=== PATIENT | female | born 1955 | race Caucasian/White ===

== ENCOUNTER 2021-04-14 15:43 | Inpatient (IN) ==
--- NOTE | 2021-04-14 16:10 | Emergency Department Note ---
History of Present Illness General Chief complaint: Neuro Symptoms/Deficit Stated complaint: POSSIBLE STROKE SYMPTOMS, SLURRED SPEECH, ARM NUMB Time Seen by Provider: 04/14/21 15:51 Source: patient and family History of Present Illness Provider complaint: Right arm numbness and difficulty with speech Onset (ago): hour(s) Location: head, upper extremity and right Pain Consistency: + now resolved Quality: + other (Numbness to the right arm and difficulty with speech) Exacerbated By: + none Associated symptoms: no chest pain, no cough, no fever/chills, no headaches, no nausea/vomiting or no shortness of breath This is a 65-year-old female who presents with strokelike symptoms starting at approximately 1230 p.m. today She was seen at an urgent care center and sent here for further work-up. The patient states that she works at [employer] and was doing a customers order. She messed up the order and she a lso started to feel numbness to the right forearm. Shortly thereafter the staff noticed that her speech was off. She had trouble articulating words and was not sure if she was able to find the right words as well. She is having difficulty differentiating the 2. She states that she had no sudden change in vision, difficulty walking, weakness in the extremities or numbness other than in the right arm. She had no trouble swallowing. She did not have a headache. She denies any similar symptoms in the past. She has a history of hypertension. She has had no fever, cough or cold symptoms other than mild sinus issues which are chronic, chest pain, shortness of breath, abdominal pain, vomiting, diarrhea or urinary symptoms. Home Medications Medication Instructions Recorded Confirmed Type atenolol 100 mg tablet 50 mg PO QPM 04/14/21 04/14/21 History atenolol 100 mg tablet 100 mg PO QAM 04/14/21 04/14/21 History doxazosin 4 mg tablet 4 mg PO DAILY 04/14/21 04/14/21 History lisinopril 20 1 tab PO DAILY 04/14/21 04/14/21 History mg-hydrochlorothiazide 25 mg tablet Allergies Allergy/AdvReac Type Severity Reaction Status Date / Time No Known Allergies Allergy Unverified 04/14/21 20:08 Past Med/Surg History Medical History Hypertension Sinus infection Social History Smoking Status: Current every day smoker Feels Safe at Home: Yes Review of Systems See HPI for pertinent positives & negatives. and A total of 10 systems reviewed and were otherwise negative Physical Exam Vital Signs Vital Signs - 24 hr 04/14/21 15:48 04/14/21 16:04 04/14/21 17:00 Temperature 36.8 C Temperature Source Temporal Artery Scan Pulse Rate 69 Pulse Rate [Left Finger] 85 84 Pulse Rhythm Regular Pulse Rhythm [Left Finger] Regular Regular Pulse Strength Normal Pulse Strength [Left Finger] Normal Normal Respiratory Rate 20 17 18 Respiratory Effort / Characteristics Non-Labored Spontaneous Non-Labored Spontaneous Non-Labored Spontaneous Respiratory Depth Normal Normal Normal Respiratory Pattern Regular Blood Pressure 175/81 H Blood Pressure [Left Arm] 150/88 H 138/84 Blood Pressure Mean 112 Blood Pressure Mean [Left Arm] 108 102 Blood Pressure Position Sitting Blood Pressure Position [Left Arm] Sitting Sitting Pulse Oximetry 99 94 94 Oxygen Delivery Method Room Air Room Air Room Air Sepsis Recent Fever Within 48 Hours No Sepsis New/Unexplained Change in Mental Status N/A Sepsis Action Taken by Nursing No Action Required 04/14/21 18:00 04/14/21 20:00 Temperature Temperature Source Pulse Rate Pulse Rate [Left Finger] 63 80 Pulse Rhythm Pulse Rhythm [Left Finger] Regular Regular Pulse Strength Pulse Strength [Left Finger] Normal Normal Respiratory Rate 17 18 Respiratory Effort / Characteristics Non-Labored Spontaneous Non-Labored Spontaneous Respiratory Depth Normal Normal Respiratory Pattern Regular Blood Pressure Blood Pressure [Left Arm] 178/91 H 137/62 Blood Pressure Mean Blood Pressure Mean [Left Arm] 120 87 Blood Pressure Position Blood Pressure Position [Left Arm] Sitting Lying Pulse Oximetry 96 96 Oxygen Delivery Method Room Air Room Air Sepsis Recent Fever Within 48 Hours Sepsis New/Unexplained Change in Mental Status Sepsis Action Taken by Nursing Constitutional: Vital signs reviewed. Eyes: Pupils are equal round reactive to light. Conjunctiva are noninjected. ENT: Pharynx is clear without erythema or exudate. Mucous membranes are moist. Neck supple without meningeal signs. Respiratory: Clear to auscultation bilaterally. Breath sounds are equal bilaterally. Cardiovascular: Regular rate and rhythm. No rubs or gallops. Loud carotid bruit on the left side. Carotid bruit also present on the right side. Not as pronounced. GI: Soft, nondistended and nontender. Bowel sounds are present. Musculoskeletal: No peripheral edema. No lower extremity tenderness. Integumentary: No cyanosis. or jaundice. Neurologic: The patient is awake and alert. Cranial nerves II-XII are intact. Motor is 5 out of 5 all extremities. Sensation is intact to light touch all extremities. Normal speech. No pronator drift. No limb ataxia. Normal gait. Psychiatric: Anxious. Course Administered Medications Discontinued Medications Aspirin (Aspirin 81 Mg Chew) 324 mg PO NOW STA Stop: 04/14/21 20:19 Last Admin: 04/14/21 20:41 Dose: 324 mg Documented by: [id number] Clopidogrel Bisulfate (Clopidogrel Bisulfate 75 Mg Tab) 75 mg PO NOW ONE Stop: 04/14/21 20:19 Last Admin: 04/14/21 20:40 Dose: 75 mg Documented by: [id number] Ioversol (Optiray 320 125ml) 118 ml IV ONCE ONE Stop: 04/14/21 17:55 Last Admin: 04/14/21 17:59 Dose: 118 ml Documented by: [id number] Medical Decision Making Differential Diagnosis TIA, CVA, intracranial bleed, intracranial mass, metabolic derangement, complex migraine Medical Records Attestation: I reviewed the patient's medical records. I did perform a limited focused review of portions of the patient's old chart on the electronic medical record. The patient has had no recent pertinent visits to this hospital. Home Medications Current Medication List: was personally reviewed by me Laboratory Data Attestation: I reviewed the patient's lab results. Result diagrams: 04/14/21 16:10 04/14/21 16:10 Lab Results 04/14/21 04/14/21 04/14/21 Range/Units 16:10 16:10 16:10 WBC 7.68 (4.8-10.8) K/uL RBC 4.75 (4.2-5.4) M/uL Hgb 15.6 (12.0-16.0) g/dL Hct 43.5 (37-47) % MCV 91.6 (80-100) fL MCH 32.8 (25-34) pg MCHC 35.9 (32-36) g/dL RDW Std Deviation 45.9 (36.4-46.3) fL RDW Coeff of Roby 13.6 (11.5-14.5) % Plt Count 261 (130-400) K/uL MPV 10.0 (7.4-10.4) fL Immature Gran % (Auto) 0.1 % Neut % (Auto) 64.8 % Lymph % (Auto) 27.5 % [place] % (Auto) 6.1 % Eos % (Auto) 1.4 % Baso % (Auto) 0.1 % Neut # (Auto) 4.97 (1.4-6.5) K/uL Lymph # (Auto) 2.11 (1.2-3.4) K/uL [place] # (Auto) 0.47 (0.11-0.59) K/uL Eos # (Auto) 0.11 (0-0.5) K/uL Baso # (Auto) 0.01 (0-0.2) K/uL Immature Gran # (Auto) 0.01 (0.00-0.02) K/uL PT 10.2 (9.0-12.0) Seconds INR 1.0 (0.9-1.1) APTT 29.0 (21.0-31.0) Seconds PTT Ratio 1.1 Sodium 135 L (136-145) mmol/L Potassium 3.8 (3.5-5.1) mmol/L Chloride 101 (98-107) mmol/L Carbon Dioxide 27 (21-32) mmol/L Anion Gap 7 (3-11) BUN 18 (6-23) mg/dl Creatinine 0.76 (0.6-1.2) mg/dl Est Cr Clr Drug Dosing 76.0 ml/min Est GFR ( Amer) 96.1 ml/min Est GFR (Non-Af Amer) 82.9 ml/min BUN/Creatinine Ratio 23.7 H (10-20) Glucose 98 (70-99(Fasting)) mg/dl POC Glucose (70-99) mg/dl Calcium 9.6 (8.5-10.1) mg/dl Magnesium 2.1 (1.7-2.4) mg/dl Total Bilirubin 0.6 (0.2-1.0) mg/dl AST 13 (13-39) U/L ALT 16 (7-52) U/L Alkaline Phosphatase 64 (34-104) U/L Troponin I < 0.03 (0-0.04) ng/ml Total Protein 7.4 (6.0-8.3) gm/dl Albumin 4.7 (3.4-5.0) gm/dl Globulin 2.7 (2.5-4.0) gm/dl Albumin/Globulin Ratio 1.7 (0.9-2) SARS-CoV-2, RNA, NAAT (NEGATIVE) Blood Type Antibody Screen 04/14/21 04/14/21 04/14/21 Range/Units 16:20 16:21 16:52 WBC (4.8-10.8) K/uL RBC (4.2-5.4) M/uL Hgb (12.0-16.0) g/dL Hct (37-47) % MCV (80-100) fL MCH (25-34) pg MCHC (32-36) g/dL RDW Std Deviation (36.4-46.3) fL RDW Coeff of Roby (11.5-14.5) % Plt Count (130-400) K/uL MPV (7.4-10.4) fL Immature Gran % (Auto) % Neut % (Auto) % Lymph % (Auto) % [place] % (Auto) % Eos % (Auto) % Baso % (Auto) % Neut # (Auto) (1.4-6.5) K/uL Lymph # (Auto) (1.2-3.4) K/uL [place] # (Auto) (0.11-0.59) K/uL Eos # (Auto) (0-0.5) K/uL Baso # (Auto) (0-0.2) K/uL Immature Gran # (Auto) (0.00-0.02) K/uL PT (9.0-12.0) Seconds INR (0.9-1.1) APTT (21.0-31.0) Seconds PTT Ratio Sodium (136-145) mmol/L Potassium (3.5-5.1) mmol/L Chloride (98-107) mmol/L Carbon Dioxide (21-32) mmol/L Anion Gap (3-11) BUN (6-23) mg/dl Creatinine (0.6-1.2) mg/dl Est Cr Clr Drug Dosing ml/min Est GFR ( Amer) ml/min Est GFR (Non-Af Amer) ml/min BUN/Creatinine Ratio (10-20) Glucose (70-99(Fasting)) mg/dl POC Glucose 96 (70-99) mg/dl Calcium (8.5-10.1) mg/dl Magnesium (1.7-2.4) mg/dl Total Bilirubin (0.2-1.0) mg/dl AST (13-39) U/L ALT (7-52) U/L Alkaline Phosphatase (34-104) U/L Troponin I (0-0.04) ng/ml Total Protein (6.0-8.3) gm/dl Albumin (3.4-5.0) gm/dl Globulin (2.5-4.0) gm/dl Albumin/Globulin Ratio (0.9-2) SARS-CoV-2, RNA, NAAT NEGATIVE (NEGATIVE) Blood Type O Positive Antibody Screen NEGATIVE Imaging Data Radiologist's Impression: Head CT 04/14/21 16:04 CT head/brain wo con CLINICAL HISTORY: 65 years-old Female with right arm numb/slurring of speech. Acutely altered mental status with strokelike symptoms TECHNIQUE: Multiple axial CT images of the head were obtained without contrast. A dose lowering technique was utilized adhering to the principles of ALARA. COMPARISON: CTA head and neck of same day FINDINGS: No acute intracranial hemorrhage, midline shift, intracranial mass, hydrocephalus, territorial ischemia or abnormal extra-axial collection. There are a few scattered subcentimeter cortical calcifications of the right cerebral hemisphere. Mildly motion degraded exam. The calvarium is intact. The paranasal sinuses, mastoid air cells, and middle ear cavities are clear. IMPRESSION: No acute intracranial abnormality. ACT 112: Negative or not required by law. The above report was generated using voice recognition software. It may contain grammatical, syntax or spelling errors. Electronically signed by: Js Bloom M.D. 04/14/2021 6:17 PM Head CTA 04/14/21 16:04 CT angio neck with con, CT angio head w con CLINICAL HISTORY: 65 years-old Female with left carotid bruit. Acute strokelike symptoms COMPARISON STUDY: Head CT of same day TECHNIQUE: Following the IV administration of 118 mL of Optiray, CT angiogram of the head and neck was performed from the aortic arch to the skull apex. Images are reviewed in the axial, sagittal, and coronal planes. 3-D MIPS images are created and assessed. IV contrast was administered without complication. All measurements were calculated based on NASCET criteria. A dose lowering technique was utilized adhering to the principles of ALARA. CT DOSE: 1825.08 mGy.cm FINDINGS: Study is mildly motion degraded. Atherosclerosis of the thoracic aortic arch. Patency of the innominate and imaged subclavian arteries. Patent common carotid arteries. There is severe mixed atheromatous and atherosclerotic plaque of the bilateral carotid bulbs and proximal cervical segments of the internal carotid arteries. This results in approximately 70% stenosis of the proximal left ICA (image 204 of series 8) with high-grade at least 90% stenosis/near occlusion of the proximal cervical segment right ICA (image 218 of series 8). The remainder of the right ICA is diminutive compared to the right, most pronounced within the distal petrous and cavernous segments. Atherosclerotic plaque of the cavernous and supraclinoid segments bilaterally. The middle and anterior cerebral arteries appear patent bilaterally. Dominant right vertebral artery. The bilateral vertebral arteries are patent. The basilar and posterior cerebral arteries are patent. There is origin of the right posterior cerebral artery. Cerebral venous sinuses are patent. There is no abnormal intracranial enhancement. Lung apices are generally clear. There is no pneumothorax. No thyroid nodule. Degenerative changes of the cervical spine. IMPRESSION: 1. Extensive atherosclerotic plaque of the carotid bulbs results in high-grade stenosis of the proximal cervical segments of the internal carotid arteries bilaterally (approximately 70% stenosis on the right with at least 90% stenosis/near occlusion on the left). 2. The entire right internal carotid artery is diminutive with diminished flow compared to the left. 3. Otherwise unremarkable exam. ACT 112: Negative or not required by law. The above report was generated using voice recognition software. It may contain grammatical, syntax or spelling errors. Electronically signed by: Js Bloom M.D. 04/14/2021 6:27 PM Neck CTA 04/14/21 16:04 CT angio neck with con, CT angio head w con CLINICAL HISTORY: 65 years-old Female with left carotid bruit. Acute strokelike symptoms COMPARISON STUDY: Head CT of same day TECHNIQUE: Following the IV administration of 118 mL of Optiray, CT angiogram of the head and neck was performed from the aortic arch to the skull apex. Images are reviewed in the axial, sagittal, and coronal planes. 3-D MIPS images are created and assessed. IV contrast was administered without complication. All measurements were calculated based on NASCET criteria. A dose lowering technique was utilized adhering to the principles of ALARA. CT DOSE: 1825.08 mGy.cm FINDINGS: Study is mildly motion degraded. Atherosclerosis of the thoracic aortic arch. Patency of the innominate and imaged subclavian arteries. Patent common carotid arteries. There is severe mixed atheromatous and atherosclerotic plaque of the bilateral carotid bulbs and proximal cervical segments of the internal carotid arteries. This results in approximately 70% stenosis of the proximal left ICA (image 204 of series 8) with high-grade at least 90% stenosis/near occlusion of the proximal cervical segment right ICA (image 218 of series 8). The remainder of the right ICA is diminutive compared to the right, most pronounced within the distal petrous and cavernous segments. Atherosclerotic plaque of the cavernous and supraclinoid segments bilaterally. The middle and anterior cerebral arteries appear patent bilaterally. Dominant right vertebral artery. The bilateral vertebral arteries are patent. The basilar and posterior cerebral arteries are patent. There is origin of the right posterior cerebral artery. Cerebral venous sinuses are patent. There is no abnormal intracranial enhancement. Lung apices are generally clear. There is no pneumothorax. No thyroid nodule. Degenerative changes of the cervical spine. IMPRESSION: 1. Extensive atherosclerotic plaque of the carotid bulbs results in high-grade stenosis of the proximal cervical segments of the internal carotid arteries bilaterally (approximately 70% stenosis on the right with at least 90% stenos is/near occlusion on the left). 2. The entire right internal carotid artery is diminutive with diminished flow compared to the left. 3. Otherwise unremarkable exam. ACT 112: Negative or not required by law. The above report was generated using voice recognition software. It may contain grammatical, syntax or spelling errors. Electronically signed by: Js Bloom M.D. 04/14/2021 6:27 PM ECG Data Attestation: I personally reviewed and interpreted this ECG as follows: Indication: + other (Stroke symptoms) Rate (beats per minute): 66 Rhythm: + normal sinus ECG Lawrence: + Normal ECG ST segments: no ST elevation ECG Findings: + PACs MDM Narrative I did evaluate the patient as noted above. She is presenting with stroke symptoms which have completely resolved. She had difficulty with her speech as well as numbness to the right arm. On exam here she is completely neurologically intact. She does have a loud carotid bruit on the left side. IV access was established. I did place an order for continuous cardiac monitoring. The monitor showed normal sinus rhythm at a rate of 80 bpm. I did order and per sonally review the patient's 12-lead EKG as described above. She has no acute ischemic changes. I did order and review the patient's blood work as noted in the electronic medical record. CBC is unremarkable without leukocytosis or anemia. Electrolytes and LFTs are unremarkable other than a sodium of 135. I did order a CT of the head and CT angiogram of the head neck. I did review the images myself as well as the radiology report as described above. There is no evidence of CVA on plain CT scan. CT angio of the neck and head demonstrates extensive atherosclerotic plaque of the carotid bulbs resulting in high-grade stenosis of the proximal cervical segments of the internal carotid arteries bilaterally with approximately 90% stenosis on the right side and 70% on the left. The entire right internal carotid artery is diminutive with diminished flow compared to the left. I did discuss the test results with the patient and her daughter. She is asymptomatic at this time. I did discuss the case with Dr. Soni of neurology. He recommended MRI, permissive hypertension and dual antiplatelet therapy. I did treat the patient with Plavix and aspirin. I did discuss the case with the hospitalist and rn case manager. Impression & Plan Transient cerebral ischemia, Bilateral carotid artery disease Discharge Plan Visit Data Chief Complaint: Neuro Symptoms/Deficit Stated Complaint: POSSIBLE STROKE SYMPTOMS, SLURRED SPEECH, ARM NUMB ED Provider: Reece Peter Discharge Problem: Transient cerebral ischemia, Bilateral carotid artery disease Patient Disposition: Being Evaluated by Hospitalist Forms Stand Alone Forms: My [facility] Prescriptions Prescriptions: No Action doxazosin 4 mg tablet 4 mg PO DAILY RF: 0 lisinopril-hydrochlorothiazide 20-25 mg tablet 1 tab PO DAILY RF: 0 atenolol 100 mg tablet 100 mg PO QAM RF: 0 atenolol 100 mg tablet 50 mg PO QPM RF: 0 Referrals Referrals: Geovani Joshi MD [Primary Care Provider] -
[2021-04-14 16:24] LABS: Basophils # (auto) 0.01 K/uL (0-0.2); Basophils % (auto) 0.1 %; Eosinophils # (auto) 0.11 K/uL (0-0.5); Eosinophils % (auto) 1.4 %; Hematocrit (blood only) 43.5 % (37-47); Hemoglobin 15.6 g/dL (12.0-16.0); Immature Granulocytes # (auto) 0.01 K/uL (0.00-0.02); Immature Granulocytes % (auto) 0.1 %; Lymphocytes # (auto) 2.11 K/uL (1.2-3.4); Lymphocytes % (auto) 27.5 %; Mean Corpuscular Hemoglobin 32.8 pg (25-34); Mean Corpuscular Hgb Conc 35.9 g/dL (32-36); Mean Corpuscular Volume 91.6 fL (80-100); Monocytes # (auto) 0.47 K/uL (0.11-0.59); Monocytes % (auto) 6.1 %; Neutrophils # (auto) 4.97 K/uL (1.4-6.5); Neutrophils % (auto) 64.8 %; Platelet Count 261 K/uL (130-400); RDW Coefficient of Variation 13.6 % (11.5-14.5); RDW Standard Deviation 45.9 fL (36.4-46.3); Red Blood Count 4.75 M/uL (4.2-5.4); White Blood Count 7.68 K/uL (4.8-10.8)
[2021-04-14 16:38] LABS: Partial Thromboplastin Ratio 1.1; Prothrombin Time 10.2 Seconds (9.0-12.0)
[2021-04-14 16:48] LABS: Alanine Aminotransferase 16 U/L (7-52); Albumin Globulin Ratio 1.7 (0.9-2); Albumin Level 4.7 gm/dl (3.4-5.0); Alkaline Phosphatase 64 U/L (34-104); Anion Gap 7 (3-11); Aspartate Aminotransferase 13 U/L (13-39); BUN Creatinine Ratio 23.7 (10-20); Bilirubin,Total 0.6 mg/dl (0.2-1.0); Blood Urea Nitrogen 18 mg/dl (6-23); Calcium 9.6 mg/dl (8.5-10.1); Carbon Dioxide 27 mmol/L (21-32); Chloride 101 mmol/L (98-107); Est GFR (African American) 96.1 ml/min; Est GFR (Non-African American) 82.9 ml/min; Globulin 2.7 gm/dl (2.5-4.0); Glucose 98 mg/dl (70-99(Fasting)); Magnesium 2.1 mg/dl (1.7-2.4); Potassium 3.8 mmol/L (3.5-5.1); Sodium 135 mmol/L (136-145); Total Protein 7.4 gm/dl (6.0-8.3)
[2021-04-14 17:54] LABS: Troponin I < 0.03 ng/ml (0-0.04)
[2021-04-14] MEDS ORDERED: OPTIRAY 320 125ml IV ONE (17:54)
--- NOTE | 2021-04-14 18:18 | CT Scan Report ---
CT head/brain wo con CLINICAL HISTORY: 65 years-old Female with right arm numb/slurring of speech. Acutely altered mental status with strokelike symptoms TECHNIQUE: Multiple axial CT images of the head were obtained without contrast. A dose lowering tech nique was utilized adhering to the principles of ALARA. COMPARISON: CTA head and neck of same day FINDINGS: No acute intracranial hemorrhage, midline shift, intracranial mass, hydrocephalus, territorial ischem ia or abnormal extra-axial collection. There are a few scattered subcentimeter cortical calcification s of the right cerebral hemisphere. Mildly motion degraded exam. The calvarium is intact. The paranasal sinuses, mastoid air cells, and middle ear cavities are clear . IMPRESSION: No acute intracranial abnormality. ACT 112: Negative or not required by law. The above report was generated using voice recognition software. It may contain grammatical, syntax o r spelling errors. Electronically signed by: Js Bloom M.D. 04/14/2021 6:17 PM
--- NOTE | 2021-04-14 18:28 | CT Scan Report ---
CT angio neck with con, CT angio head w con CLINICAL HISTORY: 65 years-old Female with left carotid bruit. Acute strokelike symptoms COMPARISON STUDY: Head CT of same day TECHNIQUE: Following the IV administration of 118 mL of Optiray, CT angiogram of the head and neck wa s performed from the aortic arch to the skull apex. Images are reviewed in the axial, sagittal, and c oronal planes. 3-D MIPS images are created and assessed. IV contrast was administered without complic ation. All measurements were calculated based on NASCET criteria. A dose lowering technique was util ized adhering to the principles of ALARA. CT DOSE: 1825.08 mGy.cm FINDINGS: Study is mildly motion degraded. Atherosclerosis of the thoracic aortic arch. Patency of the innomina te and imaged subclavian arteries. Patent common carotid arteries. There is severe mixed atheromatous and atherosclerotic plaque of the bilateral carotid bulbs and proximal cervical segments of the inte rnal carotid arteries. This results in approximately 70% stenosis of the proximal left ICA (image 204 of series 8) with high-grade at least 90% stenosis/near occlusion of the proximal cervical segment r ight ICA (image 218 of series 8). The remainder of the right ICA is diminutive compared to the right, most pronounced within the distal petrous and cavernous segments. Atherosclerotic plaque of the cave rnous and supraclinoid segments bilaterally. The middle and anterior cerebral arteries appear patent bilaterally. Dominant right vertebral artery. The bilateral vertebral arteries are patent. The basila r and posterior cerebral arteries are patent. There is origin of the right posterior cerebral a rtery. Cerebral venous sinuses are patent. There is no abnormal intracranial enhancement. Lung apices are generally clear. There is no pneumothorax. No thyroid nodule. Degenerative changes of the cervical spine. IMPRESSION: 1. Extensive atherosclerotic plaque of the carotid bulbs results in high-grade stenosis of the proxim al cervical segments of the internal carotid arteries bilaterally (approximately 70% stenosis on the right with at least 90% stenosis/near occlusion on the left). 2. The entire right internal carotid artery is diminutive with diminished flow compared to the left. 3. Otherwise unremarkable exam. ACT 112: Negative or not required by law. The above report was generated using voice recognition software. It may contain grammatical, syntax o r spelling errors. Electronically signed by: Js Bloom M.D. 04/14/2021 6:27 PM
[2021-04-14] MEDS ORDERED: CLOPIDOGREL BISULFATE 75 MG TAB PO ONE (20:18)
[2021-04-14] MEDS ORDERED: ASPIRIN 81 MG CHEW PO STA (20:18)
[2021-04-14] MEDS ORDERED: THIAMINE HCL 100 MG in SYRINGE 9 ML IV STA (23:28)
[2021-04-14] MEDS ORDERED: GADOBUTROL 65ML VIAL IV ONE (23:56)
--- NOTE | 2021-04-15 00:40 | History and Physical Report ---
DATE OF ADMISSION: 04/14/2021. CHIEF COMPLAINT: TIA, stroke-like symptoms. HISTORY OF PRESENT ILLNESS: A 65-year-old female with past medical history significant for hyperlipidemia, history of atrial premature beats, premature ventricular beats, hypertension, generalized anxiety, tobacco use disorder, comes because of stroke-like symptoms. The patient works in [employer]. Around 12:30 p.m., she noticed numbness in the right upper extremity and she was also not able to speak and not able to articulate and it lasted for about half an hour and during that time she was able to ambulate okay. No difficulty swallowing .Symptoms are completely resolved. Currently, resting comfortably, hemodynamically stable. Denies any chest pain. No shortness of breath, no headache, no dizziness, no blurred visions, no earache, no runny nose, no sore throat, no cough, no fevers, no nausea, no vomiting, no abdominal pain. Normal bowel and bladder movements. No swelling in the legs. Otherwise, ambulates okay. ALLERGIES: No known drug allergies. PAST MEDICAL HISTORY: As mentioned above. PAST SURGICAL HISTORY: Breast biopsy. MEDICATIONS: The patient is on atenolol 100 mg in a.m. and atenolol 50 mg in p.m., doxazosin 4 mg p.o. daily, lisinopril/hydrochlorothiazide 20/25 mg p.o. daily. FAMILY HISTORY: Significant for maternal grandfather has GA. SOCIAL HISTORY: . Smokes 1 to 1.5 packs a day for last 42 years. Drinks two to three beers every day. Denies any drug use. REVIEW OF SYSTEMS: As per HPI. Rest of review of systems is negative. PHYSICAL EXAMINATION: GENERAL: The patient is of moderate build, not in acute distress. VITAL SIGNS: Temperature 36.8, pulse 78, respiratory rate 18, blood pressure 137/62, oxygen 97% on room air. HEENT: Pupils equal, round and reactive to light. Oral mucosa moist. NECK: No JVD, no neck masses. CARDIOVASCULAR: S1 and S2 heard. Regular rate and rhythm. No murmur, no gallop. RESPIRATORY SYSTEM: Normal AP diameter. No accessory muscle use. No wheezing, no crackles. ABDOMEN: Soft, bowel sounds present, nontender, no distention. CENTRAL NERVOUS SYSTEM: Alert and oriented. No facial droop. Speech is clear. Extraocular muscles intact. Power 5/5 in all extremities. Coordination of movements normal. No pronator drift. Sensation is intact. EXTREMITIES: No edema, no erythema. LABORATORY DATA: WBC 7.6, hemoglobin 15.6, hematocrit 43.5, platelets 261. PT 10.2, INR 1, APTT 29. Sodium 135, potassium 3.8, chloride 101, bicarbonate 27, BUN 18, creatinine 0.7, serum glucose 98, calcium 9.6, magnesium 2.1, total bilirubin 0.6, AST 13, ALT 16, alkaline phosphatase 64. Troponin I less than 0.03. SARS-CoV-2 RNA negative. IMAGING DATA: CTA of the neck, high-grade stenosis of the proximal cervical segments of the internal carotid arteries bilaterally, 70% stenosis of the right with at least 90% stenosis near occlusion of the left and the right internal carotid artery is diminutive with diminished flow compared to the left. CTA of the head, no acute findings. EKG: Sinus rhythm with PACs at a rate of 66, no acute ST changes seen. ASSESSMENT AND PLAN: This is a 65-year-old female who presents with stroke-like symptoms. 1. Stroke-like symptoms: Possible transient ischemic attack with right upper extremity numbness and also difficulty speaking that lasted for about half an hour. Imaging studies show bilateral carotid stenosis, significant stenosis. ER spoke to Neurology, recommended aspirin, Plavix, and outpatient vascular evaluation and permissive hypertension. Will hold her blood pressure medications and will place on IV Lopressor p.r.n. to allow for permissive hypertension, will place her on IV fluids and full stroke workup with MRI scan and echo. Neuro consult in a.m. Speech evaluation and PT/OT evaluation. Follow the lipid profile and HbA1c levels. Advised for quitting smoking. Closely monitor in tele floor. 2. History of hypertension: Holding her atenolol and doxazosin, lisinopril, hydrochlorothiazide. Placed on IV Lopressor p.r.n. to allow for permissive hypertension. Monitor the blood pressure. 3. Ongoing tobacco abuse: Needs counseling. 4. Alcoholism: The patient says she drinks 2-3 beers everyday. She thinks she will not get alcohol withdrawal symptoms. Will place on thiamine, folic acid, and IV Ativan p.r.n. 5. Deep venous thrombosis prophylaxis: Sequential compression devices for now. DISPOSITION: Admit to tele floor. Expect to discharge home and follow with family doctor. Level 1 full code. Job ID: [id number] [facility] HOSPITALGlynn
[2021-04-15] MEDS ORDERED: NITROGLYCERIN SL 0.4 MG/TAB TAB SL PRN (01:38)
[2021-04-15] MEDS ORDERED: ACETAMINOPHEN 325 MG TAB PO PRN (01:38)
[2021-04-15] MEDS ORDERED: SODIUM CHLORIDE 0.45 % 1,000 ML IV SCH (01:38)
[2021-04-15] MEDS ORDERED: PHARMACIST DISCHARGE MED REC CONSULT PRN (01:38)
[2021-04-15] MEDS ORDERED: METOPROLOL TARTRATE 1 MG/ML VIAL IV PRN (01:38)
[2021-04-15] MEDS ORDERED: ONDANSETRON INJ 2 MG/ML 2 ML VIAL IV PRN (01:38)
[2021-04-15] MEDS ORDERED: POLYETHYLENE (MIRALAX) 17 GM PACK PO PRN (01:38)
[2021-04-15] MEDS ORDERED: LORazepam 1 MG/2 ML VIAL IV PRN (01:38)
[2021-04-15 07:05] LABS: Basophils # (auto) 0.01 K/uL (0-0.2); Basophils % (auto) 0.2 %; Eosinophils % (auto) 1.9 %; Hematocrit (blood only) 43.4 % (37-47); Hemoglobin 15.2 g/dL (12.0-16.0); Immature Granulocytes # (auto) 0.01 K/uL (0.00-0.02); Immature Granulocytes % (auto) 0.2 %; Lymphocytes # (auto) 1.55 K/uL (1.2-3.4); Lymphocytes % (auto) 28.7 %; Mean Corpuscular Hemoglobin 32.3 pg (25-34); Mean Corpuscular Volume 92.1 fL (80-100); Mean Platelet Volume 10.2 fL (7.4-10.4); Monocytes # (auto) 0.36 K/uL (0.11-0.59); Monocytes % (auto) 6.7 %; Neutrophils # (auto) 3.37 K/uL (1.4-6.5); Neutrophils % (auto) 62.3 %; Platelet Count 275 K/uL (130-400); RDW Coefficient of Variation 13.7 % (11.5-14.5); Red Blood Count 4.71 M/uL (4.2-5.4)
--- NOTE | 2021-04-15 07:24 | Magnetic Resonance Report ---
MRI OF THE BRAIN COMBO CLINICAL HISTORY: Right upper extending numbness. Difficulty speaking. Transient ischemic attack. COMPARISON STUDY: CT and CT angiogram of the brain dated 04/14/2021. TECHNIQUE: MRI of the brain was performed utilizing various T1 and T2-weighted sequences in the axial , sagittal, and coronal planes. Contrast-enhanced sequences were acquired following the administratio n of 7.5 cc of Gadavist. FINDINGS: Brain parenchyma: There is age-related involutional change noting mild subcortical and periventricula r microangiopathic disease. There is a subcentimeter linear focus of restricted diffusion seen inferi socorro within the right basal ganglia/external capsule consistent with an acute to subacute lacunar inf arct. No additional foci of restricted diffusion are identified. There is no hemorrhage or mass effec t. No enhancing mass lesion is identified on the postcontrast images. Sun-white matter differentiati on is preserved. No extra-axial fluid collection is seen. The cerebellar tonsils are normal in config uration. Ventricles, sulci, and cisterns: Prominent secondary to involutional change. Pituitary and sella: Unremarkable. Intracranial vasculature: There is loss of the normal right internal carotid artery flow-void at the skull base. The right middle cerebral artery flow-void is preserved. The remaining flow-voids the sku ll base are patent. Orbits: The bony orbits are grossly intact. Orbital contents are normal in appearance. Sinuses and mastoids: A 13 mm retention cyst is noted in the right maxillary antrum. The remaining pa ranasal sinuses are clear, as are the mastoid air cells. Calvarium: Unremarkable. Cervical cord: Partially visualized cervical spinal cord is normal in morphology and signal intensity . IMPRESSION: 1. There is a subcentimeter acute to subacute lacunar infarct in the inferior right basal ganglia/ext ernal capsule. 2. No additional foci of acute ischemia are identified. 3. There is no hemorrhage or mass effect. 4. There is loss of the normal right internal carotid artery flow-void at the skull base. This was be tter assessed on today's CT angiogram of the brain. ACT 112: Negative or not required by law. Electronically signed by: Domingo Jara M.D. 04/15/2021 7:22 AM
[2021-04-15 07:34] LABS: BUN Creatinine Ratio 21.5 (10-20); Calcium 9.1 mg/dl (8.5-10.1); Chol HDL Ratio 2.8 (0-5); Creatinine Clr Calc Pharmacy 88.8 ml/min; Est GFR (African American) 108.7 ml/min; Est GFR (Non-African American) 93.8 ml/min; Potassium 3.4 mmol/L (3.5-5.1)
[2021-04-15 07:39] LABS: Estimated Average Glucose 117 mg/dl; Hemoglobin A1C 5.7 % (4.5-5.6)
[2021-04-15] MEDS: ATORVASTATIN 40 MG TAB PO SCH (08:21)
[2021-04-15] MEDS: CLOPIDOGREL BISULFATE 75 MG TAB PO SCH (08:21)
[2021-04-15] MEDS: FOLIC ACID 1 MG TAB PO SCH (08:21)
[2021-04-15] MEDS: THIAMINE HCL 50 MG TABLET PO SCH (08:21)
[2021-04-15] MEDS: CEROVITE ADV FORMULA TAB PO SCH (08:21)
[2021-04-15] MEDS: DOXAZosin MESYLATE 4 MG TAB PO SCH (08:21)
[2021-04-15] MEDS: ASPIRIN 81 MG ECTAB PO SCH (08:21)
--- NOTE | 2021-04-15 09:32 | Electrocardiogram Report ---
Test Reason : Blood Pressure : / mmHG Vent. Rate : 066 BPM Atrial Rate : 066 BPM P-R Int : 156 ms QRS Dur : 068 ms QT Int : 406 ms P-R-T Axes : 068 065 052 degrees QTc Int : 425 ms Poor data quality, interpretation may be adversely affected Sinus rhythm with Premature atrial complexes Septal infarct , age undetermined Poor R wave progression, consider anterior CT vs. lead placement vs. LVH Nonspecific ST abnormality Abnormal ECG No previous ECGs available Confirmed by Carmelo Bales ([id number]) on 04/15/2021 9:32:30 AM Referred By: REFERRED SELF Confirmed By:Carmelo Bales
--- NOTE | 2021-04-15 10:25 | Consultation Report ---
DATE OF NOTE: 04/15/2021. REASON FOR CONSULTATION: Possible stroke. HISTORY OF PRESENT ILLNESS: The patient is 65-year-old right-handed female with a history of hyperli pidemia, PACs, PVCs, hypertension, anxiety, and tobacco abuse. She was working at [employer] yesterday a nd noticed numbness of her right hand. She had difficulty with finding the right words, but no dysar thria. Symptoms lasted about 15 minutes and resolved. There was no accompanying headache. No mooney e in vision. No change in swallowing. No facial droop. No unilateral weakness, numbness, no dizzin ess. There was no chest pain, palpitation, shortness of breath or lightheadedness. None of her medi cines were new or changed in dose. She has not had any head or neck injury, chiropractic manipulatio n of the neck and she has otherwise been well without any infectious symptoms. She denies any prior history of transient ischemia. MEDICAL HISTORY: As above. PAST SURGICAL HISTORY: Breast biopsy. HOME MEDICATIONS: Atenolol, doxazosin, lisinopril and HCTZ. FAMILY HISTORY: Aunt with stroke. SOCIAL HISTORY: Smokes 1-1/2 packs per day, drinks 2-3 beers every day. Denies any drug use. REVIEW OF SYSTEMS: As above. ALLERGIES: No allergies. MRI of the brain, which I have reviewed images and report, shows a subcentimeter acute to subacute la cunar infarction in the right inferior basal ganglia and external capsule. The CTA has a different i mpression in the body of the report than in the impression of the report, which I have reached out to the Radiology to assess further. Essentially, there is extensive atherosclerotic plaque in the bone s high-grade stenosis of the proximal segments of the internal carotids bilaterally approximately 70% on the right was at least 90% occlusion on the left. The body of the report says the opposite. The entire right internal carotid artery is diminutive with diminished flow compared to the left, otherw ise unremarkable exam. Patient's lab data was notable for normal H and H, normal platelet count. PT, PTT. Serum sodium was 135. Hemoglobin A1c 5.7. Total cholesterol 209, LDL 122. Urinalysis negative. EKG: Sinus rhythm, PACs, septal infarct, age indeterminate. Poor R-wave progression. Consider ante rior ME versus lead placement versus LVH, nonspecific ST abnormality. PHYSICAL EXAMINATION: VITAL SIGNS: Current vitals, 174/71, 62, 18, 36.5, 95%. NEUROLOGIC: The patient is awake and alert, in no distress. Speech and language are normal. Affect appropriate, oriented x3. Normal repetition, naming 3-step commands. There was a loud systolic bru it over the left carotid. No carotid bruit is noted on the right. Head is normocephalic, atraumatic . Pupils are equal, round, reactive to light. The optic nerves were grossly normal. Normal montelongo, motility, facial sensation, facial symmetry. No dysarthria. Tongue is midline. Motor is 5/5, no d rift. Normal rapid alternating movements. Symmetric reflexes, downgoing toes. Nqzzhh-[id number] and h eel-to-lubin are normal. Sensation is intact to light touch and temperature. Xalmlz-[id number] and heel -to-lubin are normal. IMPRESSION AND PLAN: This patient had a left hemisphere transient ischemic attack. There is evidenc e of an acute to subacute stroke in the right basal ganglia. In summary, there is high-grade stenosi s of both carotid arteries. There is some question as to whether or not the right carotid could be o ccluded and if so, the patient would be more dependent on her left internal carotid in terms of flow and ischemia. Agree with dual antiplatelet therapy, permissive hypertension, statin with goal LDL of 70 or less. I would recommend contacting Vascular Surgery regarding the CTA findings and the timing of vascular evaluation. Often we wait 6 weeks after a stroke; however, this is a very minor and asy mptomatic stroke and transient ischemic attack in the patient with very high-grade bilateral stenosis . She may well need a CT angiography prior to any carotid procedure. I have discussed the case with Dr. Amador and he understands. Job ID: [id number]
--- NOTE | 2021-04-15 13:42 | Hospitalist Progress Note ---
Date of Service April 15, 2021 Assessment & Plan (1) Acute CVA (cerebrovascular accident): Plan: ASSESSMENT AND PLAN: This is a 65-year-old female who presents with stroke-like symptoms. 1. Acute to subacute right basal ganglia lacunar infarct Brain MRI: 1. There is a subcentimeter acute to subacute lacunar infarct in the inferior right basal ganglia/external capsule. 2. No additional foci of acute ischemia are identified. 3. There is no hemorrhage or mass effect. 4. There is loss of the normal right internal carotid artery flow-void at the skull base. This was better assessed on today's CT angiogram of the brain. CT angiogram head and neck: IMPRESSION 1 should read: "Extensive atherosclerotic plaque of the carotid bulbs results in high-grade stenosis of the proximal cervical segments of the internal carotid arteries bilaterally (approximately 70% stenosis on the LEFT with at least 90% stenosis/near occlusion on the RIGHT)." Discussed with neurologist Dr. Damon Aspirin, Plavix, Lipitor Permissive hypertension Follow-up with vascular surgery in [facility] 1 week after discharge Patient strongly encourage regarding smoking and alcohol cessation 2. History of hypertension: Holding her atenolol and doxazosin, lisinopril, hydrochlorothiazide. Placed on IV Lopressor p.r.n. to allow for permissive hypertension. Monitor the blood pressure. 3. Ongoing tobacco abuse: Counseling done 4. Alcoholism: Counseling regarding cessation performed No signs of alcohol withdrawal 5. Deep venous thrombosis prophylaxis: SCDs for now Disposition Anticipate discharge home tomorrow when medically stable plan of care discussed with patient in detail and at length all questions answered she is understanding, agreeable, comfortable with the plan of care Admission and Anticipated Discharge Date Admission Date: April 14, 2021 Subjective Follow-up for acute CVA, etc. Seen sitting up in bed, having lunch Alert, oriented x3 In good spirits States she feels much better overall No recurrence of aphasia, right upper extremity weakness No other neurologic deficits no chest pain, dyspnea, palpitations, dizziness Review of Systems Review of Systems: all noted and negative except for above Physical Exam Physical Exam: General- oriented x 3, not in distress, speaks in sentences with no effort or accessory muscle use Head- atraumatic Eyes- PERRL, EOMI, anicteric ENT- oropharynx clear Neck- supple, no JVD, no adenopathy, no thyromegaly; carotids +2/2, (+) bruit BL Lungs- clear to auscultation bilaterally, no rales/wheezes Heart- normal rate, regular rhythm; no murmur, no gallop, no rub appreciated Abdomen- normal bowel sounds, nondistended, soft, nontender, no masses or hepatosplenomegaly Extremities- no pretibial edema, no calf tenderness; peripheral pulses intact Neuro- alert, oriented x 3; CN 2-12 grossly intact; motor 5/5 bilaterally;sensation 100% on all extremities; no other gross focal neurologic deficits Skin- warm & dry Results & Data Results & Data ([facility]) Vital Signs (Past 12 Hours) Vital Signs Temp Pulse Pulse Resp BP Pulse Ox 04/15/21 11:56 36.5 C 63 18 145/67 H 96 04/15/21 07:55 62 04/15/21 04:12 65 04/15/21 02:44 36.5 C 58 L 18 174/71 H 95 04/15/21 02:00 81 17 97 all noted and reviewed including below
[2021-04-15] MEDS ORDERED: hydrOXYzine HCl 25 MG TAB PO PRN (16:32)
[2021-04-16 06:54] LABS: Basophils # (auto) 0.01 K/uL (0-0.2); Basophils % (auto) 0.2 %; Eosinophils # (auto) 0.14 K/uL (0-0.5); Eosinophils % (auto) 2.1 %; Hematocrit (blood only) 44.1 % (37-47); Hemoglobin 15.3 g/dL (12.0-16.0); Immature Granulocytes # (auto) 0.01 K/uL (0.00-0.02); Immature Granulocytes % (auto) 0.2 %; Lymphocytes # (auto) 1.78 K/uL (1.2-3.4); Lymphocytes % (auto) 27.1 %; Mean Corpuscular Hemoglobin 32.1 pg (25-34); Mean Corpuscular Hgb Conc 34.7 g/dL (32-36); Mean Corpuscular Volume 92.5 fL (80-100); Monocytes # (auto) 0.35 K/uL (0.11-0.59); Monocytes % (auto) 5.3 %; Neutrophils # (auto) 4.28 K/uL (1.4-6.5); Neutrophils % (auto) 65.1 %; Platelet Count 256 K/uL (130-400); RDW Coefficient of Variation 13.6 % (11.5-14.5); RDW Standard Deviation 46.4 fL (36.4-46.3); Red Blood Count 4.77 M/uL (4.2-5.4); White Blood Count 6.57 K/uL (4.8-10.8)
[2021-04-16 07:19] LABS: BUN Creatinine Ratio 25.7 (10-20); Calcium 8.9 mg/dl (8.5-10.1); Creatinine Clr Calc Pharmacy 77.7 ml/min; Est GFR (African American) 99.2 ml/min; Est GFR (Non-African American) 85.6 ml/min; Potassium 3.8 mmol/L (3.5-5.1)
[2021-04-16] MEDS: FOLIC ACID 1 MG TAB PO SCH (07:42)
[2021-04-16] MEDS: CLOPIDOGREL BISULFATE 75 MG TAB PO SCH (07:42)
[2021-04-16] MEDS: CEROVITE ADV FORMULA TAB PO SCH (07:42)
[2021-04-16] MEDS: ASPIRIN 81 MG ECTAB PO SCH (07:42)
[2021-04-16] MEDS: ATORVASTATIN 40 MG TAB PO SCH (07:42)
[2021-04-16] MEDS: THIAMINE HCL 50 MG TABLET PO SCH (07:42)
[2021-04-16] MEDS: DOXAZosin MESYLATE 4 MG TAB PO SCH (07:43)
--- NOTE | 2021-04-16 12:12 | Hospitalist Progress Note ---
Date of Service April 16, 2021 Assessment & Plan (1) Acute CVA (cerebrovascular accident): Plan: ASSESSMENT AND PLAN: This is a 65-year-old female who presents with stroke-like symptoms. 1. Acute to subacute right basal ganglia lacunar infarct In the setting of chronic hypertension Bilateral carotid artery stenosis Presented with an episode of aphasia, right upper extremity weakness Brain MRI: 1. There is a subcentimeter acute to subacute lacunar infarct in the inferior right basal ganglia/external capsule. 2. No additional foci of acute ischemia are identified. 3. There is no hemorrhage or mass effect. 4. There is loss of the normal right internal carotid artery flow-void at the skull base. This was better assessed on today's CT angiogram of the brain. CT angiogram head and neck: IMPRESSION 1 should read: "Extensive atherosclerotic plaque of the carotid bulbs results in high-grade stenosis of the proximal cervical segments of the internal carotid arteries bilaterally (approximately 70% stenosis on the LEFT with at least 90% stenosis/near occlusion on the RIGHT)." Echocardiogram: EF 65 to 70%, normal LV relaxation, no significant valvular pathology, no intra-atrial shunt Evaluated by neurologist Dr. Damon Started on aspirin, Plavix, Lipitor Permissive hypertension Symptoms have resolved, no recurrence while admitted No arrhythmias per telemetry monitoring Discharge plan: Aspirin 81 mg p.o. daily Plavix 75 mg p.o. daily Lipitor 40 mg p.o. daily For permissive hypertension a few days after acute CVA, Continue doxazosin Reduce atenolol to 50 mg p.o. daily Hold lisinopril/chlorothiazide Needs to be established and follow-up with vascular surgery in [facility] 1 week after discharge for bilateral carotid artery stenosis Patient strongly encouraged regarding smoking and alcohol cessation 2. Hypertension Medication management per above Follow-up with PCP this week 3. Ongoing tobacco abuse: Counseling done 4. Alcoholism: Counseling regarding cessation performed No signs of alcohol withdrawal 5. Deep venous thrombosis prophylaxis: SCDs provided Disposition Discharge to home Follow-up with PCP this week Needs to establish and follow-up with [facility] vascular surgery plan of care discussed with patient in detail and at length all questions answered she is understanding, agreeable, comfortable with the plan of care Admission and Anticipated Discharge Date Admission Date: April 14, 2021 Subjective Follow-up for acute CVA, etc. Seen resting in bed, sitting up, having lunch, in good spirits, comfortable States she feels much better overall No recurrence of symptoms, no neurologic deficits no chest pain, dyspnea, palpitations, dizziness Ambulating with no problems Denies other symptoms No other symptoms States that she is ready and would like to be discharged today Review of Systems Review of Systems: all noted and negative except for above Physical Exam Physical Exam: General- oriented x 3, not in distress, speaks in sentences with no effort or accessory muscle use Eyes- anicteric Neck- no JVD Lungs- clear breath sounds bilaterally, no rales/wheezes Heart- normal rate, regular rhythm; no murmurs Abdomen- normal bowel sounds, nondistended, soft, nontender Extremities- no pretibial edema, no calf tenderness Neuro- alert, oriented x 3; no gross focal neurologic deficits Skin- warm & dry Results & Data Results & Data ([facility]) Vital Signs (Past 12 Hours) Vital Signs Temp Pulse Resp BP Pulse Ox 04/16/21 11:41 36.5 C 58 L 20 127/71 96 04/16/21 07:40 36.6 C 68 18 129/78 93 04/16/21 04:38 36.7 C 64 18 164/72 H 96 04/16/21 01:11 159/83 H 04/16/21 00:33 36.6 C 79 18 93 all noted and reviewed including below
[2021-04-16] MEDS ORDERED: STROKE PATIENT DISCHARGE STA (12:18)
--- NOTE | 2021-04-16 12:23 | Discharge Summary ---
Date of Service April 16, 2021 Admission HPI Per Admitting Provider CHIEF COMPLAINT: TIA, stroke-like symptoms. HISTORY OF PRESENT ILLNESS: A 65-year-old female with past medical history significant for hyperlipidemia, history of atrial premature beats, premature ventricular beats, hypertension, generalized anxiety, tobacco use disorder, comes because of stroke-like symptoms. The patient works in [employer]. Around 12:30 p.m., she noticed numbness in the right upper extremity and she was also not able to speak and not able to articulate and it lasted for about half an hour and during that time she was able to ambulate okay. No difficulty swallowing .Symptoms are completely resolved. Currently, resting comfortably, hemodynamically stable. Denies any chest pain. No shortness of breath, no headache, no dizziness, no blurred visions, no earache, no runny nose, no sore throat, no cough, no fevers, no nausea, no vomiting, no abdominal pain. Normal bowel and bladder movements. No swelling in the legs. Otherwise, ambulates okay. Admission Exam (Per Admitting) Constitutional GENERAL: The patient is of moderate build, not in acute distress. VITAL SIGNS: Temperature 36.8, pulse 78, respiratory rate 18, blood pressure 137/62, oxygen 97% on room air. HEENT: Pupils equal, round and reactive to light. Oral mucosa moist. NECK: No JVD, no neck masses. CARDIOVASCULAR: S1 and S2 heard. Regular rate and rhythm. No murmur, no gallop. RESPIRATORY SYSTEM: Normal AP diameter. No accessory muscle use. No wheezing, no crackles. ABDOMEN: Soft, bowel sounds present, nontender, no distention. CENTRAL NERVOUS SYSTEM: Alert and oriented. No facial droop. Speech is clear. Extraocular muscles intact. Power 5/5 in all extremities. Coordination of movements normal. No pronator drift. Sensation is intact. EXTREMITIES: No edema, no erythema. Discharge Data Consultations 04/14/21 20:25 ED Decision to Admit Stat 04/15/21 08:00 Consult Neurology Routine 04/15/21 11:18 Burn CD for patient Routine Procedures Performed CT angio neck with con, CT angio head w con CLINICAL HISTORY: 65 years-old Female with left carotid bruit. Acute strokelike symptoms COMPARISON STUDY: Head CT of same day TECHNIQUE: Following the IV administration of 118 mL of Optiray, CT angiogram of the head and neck was performed from the aortic arch to the skull apex. Images are reviewed in the axial, sagittal, and coronal planes. 3-D MIPS images are created and assessed. IV contrast was administered without complication. All measurements were calculated based on NASCET criteria. A dose lowering technique was utilized adhering to the principles of ALARA. CT DOSE: 1825.08 mGy.cm FINDINGS: Study is mildly motion degraded. Atherosclerosis of the thoracic aortic arch. Patency of the innominate and imaged subclavian arteries. Patent common carotid arteries. There is severe mixed atheromatous and atherosclerotic plaque of the bilateral carotid bulbs and proximal cervical segments of the internal carotid arteries. This results in approximately 70% stenosis of the proximal left ICA (image 204 of series 8) with high-grade at least 90% stenosis/near occlusion of the proximal cervical segment right ICA (image 218 of series 8). The remainder of the right ICA is diminutive compared to the right, most pronounced within the distal petrous and cavernous segments. Atherosclerotic plaque of the cavernous and supraclinoid segments bilaterally. The middle and anterior cerebral arteries appear patent bilaterally. Dominant right vertebral artery. The bilateral vertebral arteries are patent. The basilar and posterior cerebral arteries are patent. There is origin of the right posterior cerebral artery. Cerebral venous sinuses are patent. There is no abnormal intracranial enhancement. Lung apices are generally clear. There is no pneumothorax. No thyroid nodule. Degenerative changes of the cervical spine. IMPRESSION: 1. Extensive atherosclerotic plaque of the carotid bulbs results in high-grade stenosis of the proximal cervical segments of the internal carotid arteries bilaterally (approximately 70% stenosis on the right with at least 90% stenosis/near occlusion on the left). 2. The entire right internal carotid artery is diminutive with diminished flow compared to the left. 3. Otherwise unremarkable exam. ADDENDUM Correction to the following impression. Laterality of left versus right was missed spoken in impression #1. IMPRESSION 1 should read: "Extensive atherosclerotic plaque of the carotid bulbs results in high-grade stenosis of the proximal cervical segments of the internal carotid arteries bilaterally (approximately 70% stenosis on the LEFT with at least 90% stenosis/near occlusion on the RIGHT)." Electronically signed by: Js Bloom M.D. 04/15/2021 9:40 AM ADDENDUM END ACT 112: Negative or not required by law. The above report was generated using voice recognition software. It may contain grammatical, syntax or spelling errors. Electronically signed by: Js Bloom M.D. 04/14/2021 6:27 PM MRI OF THE BRAIN COMBO CLINICAL HISTORY: Right upper extending numbness. Difficulty speaking. Transient ischemic attack. COMPARISON STUDY: CT and CT angiogram of the brain dated 04/14/2021. TECHNIQUE: MRI of the brain was performed utilizing various T1 and T2-weighted sequences in the axial, sagittal, and coronal planes. Contrast-enhanced sequences were acquired following the administration of 7.5 cc of Gadavist. FINDINGS: Brain parenchyma: There is age-related involutional change noting mild subcortical and periventricular microangiopathic disease. There is a subcentimeter linear focus of restricted diffusion seen inferiorly within the right basal ganglia/external capsule consistent with an acute to subacute lacunar infarct. No additional foci of restricted diffusion are identified. There is no hemorrhage or mass effect. No enhancing mass lesion is identified on the postcontrast images. Sun-white matter differentiation is preserved. No extra-axial fluid collection is seen. The cerebellar tonsils are normal in configuration. Ventricles, sulci, and cisterns: Prominent secondary to involutional change. Pituitary and sella: Unremarkable. Intracranial vasculature: There is loss of the normal right internal carotid artery flow-void at the skull base. The right middle cerebral artery flow-void is preserved. The remaining flow-voids the skull base are patent. Orbits: The bony orbits are grossly intact. Orbital contents are normal in appearance. Sinuses and mastoids: A 13 mm retention cyst is noted in the right maxillary antrum. The remaining paranasal sinuses are clear, as are the mastoid air cells. Calvarium: Unremarkable. Cervical cord: Partially visualized cervical spinal cord is normal in morphology and signal intensity. IMPRESSION: 1. There is a subcentimeter acute to subacute lacunar infarct in the inferior right basal ganglia/external capsule. 2. No additional foci of acute ischemia are identified. 3. There is no hemorrhage or mass effect. 4. There is loss of the normal right internal carotid artery flow-void at the skull base. This was better assessed on today's CT angiogram of the brain. ACT 112: Negative or not required by law. Electronically signed by: Domingo Jara M.D. 04/15/2021 7:22 AM Hospital Course (1) Acute CVA (cerebrovascular accident): ASSESSMENT AND PLAN: This is a 65-year-old female who presents with stroke-like symptoms. 1. Acute to subacute right basal ganglia lacunar infarct In the setting of chronic hypertension Bilateral carotid artery stenosis Presented with an episode of aphasia, right upper extremity weakness Brain MRI: 1. There is a subcentimeter acute to subacute lacunar infarct in the inferior right basal ganglia/external capsule. 2. No additional foci of acute ischemia are identified. 3. There is no hemorrhage or mass effect. 4. There is loss of the normal right internal carotid artery flow-void at the skull base. This was better assessed on today's CT angiogram of the brain. CT angiogram head and neck: IMPRESSION 1 should read: "Extensive atherosclerotic plaque of the carotid bulbs results in high-grade stenosis of the proximal cervical segments of the internal carotid arteries bilaterally (approximately 70% stenosis on the LEFT with at least 90% stenosis/near occlusion on the RIGHT)." Echocardiogram: EF 65 to 70%, normal LV relaxation, no significant valvular pathology, no intra-atrial shunt Evaluated by neurologist Dr. Damon Started on aspirin, Plavix, Lipitor Permissive hypertension Symptoms have resolved, no recurrence while admitted No arrhythmias per telemetry monitoring Discharge plan: Aspirin 81 mg p.o. daily Plavix 75 mg p.o. daily Lipitor 40 mg p.o. daily For permissive hypertension a few days after acute CVA, Continue doxazosin Reduce atenolol to 50 mg p.o. daily Hold lisinopril/chlorothiazide Needs to be established and follow-up with vascular surgery in [facility] 1 week after discharge for bilateral carotid artery stenosis Patient strongly encouraged regarding smoking and alcohol cessation 2. Hypertension Medication management per above Follow-up with PCP this week 3. Ongoing tobacco abuse: Counseling regarding cessation performed 4. Alcoholism: Counseling regarding cessation performed No signs of alcohol withdrawal while admitted 5. Pre-DM A1c 5.7 low calorie diet, exercise advised ff up with PCP Disposition Discharge to home Follow-up with PCP this week Needs to establish and follow-up with [facility] Vascular surgery in 1 week Follow up with [facility] Neurologist Dr. Kuo plan of care discussed with patient in detail and at length all questions answered she is understanding, agreeable, comfortable with the plan of care
--- NOTE | 2021-04-16 12:48 | Pharmacy Report ---
Pharmacist Stroke Counseling - Date of Service April 16, 2021 - Scope: Pharmacy has been consulted to provide medication discharge counseling for this patient admitted with [ischemic stroke] [hemorrhagic stroke] [transient ischemic attack] as per the Pharmacist Discharge Counseling for Stroke Patients [facility]. - Medications on Discharge: Home Medications Medication Instructions Recorded Confirmed doxazosin 4 mg tablet 4 mg PO DAILY 04/14/21 04/14/21 New Rx's Medication Instructions Recorded aspirin 81 mg tablet,delayed 81 mg PO QAM 30 Days #30 tab 04/16/21 release atenolol 100 mg tablet 50 mg PO QAM #30 tab 04/16/21 atorvastatin 40 mg tablet 40 mg PO QAM 30 Days #30 tab 04/16/21 clopidogrel 75 mg tablet 75 mg PO QAM 30 Days #30 tab 04/16/21 hydroxyzine HCl 25 mg tablet 12.5 mg PO Q6H PRN #14 tab 04/16/21 lxsvekuqqtvx-aqpkqfyw-dfqbzs 1 tab PO QAM 30 Days #30 tab 04/16/21 tablet (Cerovite Senior) - Action: The above medications, specifically ones for stroke treatment/prophylaxis, have been reviewed in detail with the patient and/or patient agency service representative(s) prior to discharge. This includes indication, common adverse reactions, drug interactions, and medication administration. Medication counseling has been employed using the teach-back method to ensure understanding. - Outcome: The patient and/or patient agency service representative(s) have demonstrated understanding of the medications. Additional comments: - no obvious barriers to medication compliance identified - discussed blood pressure medication changes, as well as new medications - patient does have pill cutter at home for 1/2 tablet doses Thank you for allowing pharmacy to be involved in the care of this patient. Please call [phone] with any additional questions
--- NOTE | 2021-04-16 14:07 | Progress Notes ---
DATE OF SERVICE: 04/16/2021 SUBJECTIVE: I am seeing the patient in followup. She had a transient ischemic attack with aphasia a nd right hand weakness, but MRI of the brain showing a right lacunar infarction. The patient has not had any recurrence. CTA of the neck was addended to show extensive atherosclerotic plaque of the ca rotid bulbs results in high-grade stenosis of the proximal cervical segments of the internal carotids bilaterally, approximately 70% on the left with at least 90% stenosis or near occlusion on the right . Patient's echocardiogram revealed no embolic source. OBJECTIVE: The patient is awake and alert. Repetitions, naming and 3-step commands are normal. Nor mal extraocular motility, facial symmetry. No dysarthria. Strength is full in the upper and lowers. IMPRESSION AND PLAN: This patient has a right basal ganglia infarction and a transient ischemic sha ck affecting the left hemisphere. One wonders whether or not the right internal carotid is occluded a nd with ischemia of the left hemisphere, which she is highly dependent, presumably on the left business intern al carotid that the patient had an asymptomatic right basal ganglia infarction. Dr. Amador has dis cussed the case with [facility] and they are recommending in the absence of new sympto ms that the patient be seen by them within the next week. Recommend ongoing dual antiplatelet therapy. Vascular surgery will determine the length of such. Sm oking cessation, permissive hypertension, statin therapy. Post discharge, the patient should have a groundwater monitoring technician for the sake of completeness. She can see us in followup post-discharge. The patien t knows if she has any recurrent symptoms to return to the Emergency Room. Job ID: [id number]
== END 2021-04-16 13:32 | disposition home or self-care (01) | DRG 66 ==
LOC: ED 15:43 → EDINP 23:18 → 2S 04-15 01:13